=== PATIENT | male | born 1995 | race African-American/Black ===

== ENCOUNTER 2023-02-20 11:51 | Emergency (ER) | payer MEDICAID ==
[~2023-02-20] VITALS: Ht 177.8 cm; Wt 65.8 kg
[2023-02-20] MEDS ORDERED: BENZ-13 PO ×2 (15:44→15:58)
[2023-02-20 15:59] VITALS: BP 121/74; TEMP 98.6; O2SAT 97
== END 2023-02-20 15:59 | disposition home or self-care (01) ==
LOC: ER 11:51
DX: J10.1 Influenza due to other identified influenza virus with other respiratory manifestations (principal); Z20.822 Contact with and (suspected) exposure to COVID-19
CPT/HCPCS: 99283; 87426; 87804 ×2; C9803